=== PATIENT | male | born 1960 | race African-American/Black ===

== ENCOUNTER 2018-09-02 15:29 | Inpatient (IN) | payer MEDICAID ==
[~2018-09-02] VITALS: Ht 162.6 cm; Wt 80.3 kg
[2018-09-02] MEDS ORDERED: SODIUM CHLORIDE 0.9% 1,000 ML IV ONE (16:26)
[2018-09-02 17:43] LABS: CHLORIDE 101 mEq/L (98-107)
[2018-09-02 17:46] LABS: INR 1.2; PARTIAL THROMBOPLASTIN TIME 30.7 sec (23.4-31.0)
[2018-09-02 17:47] LABS: HEMATOCRIT. 43.7 % (42.0-52.0); HEMOGLOBIN. 14.8 g/dL (14.0-18.0); MEAN CORPUSCULAR HEMOGLOBIN 28.5 pg (28.0-32.0); MEAN PLATELET VOLUME 10.2 fl (7.4-10.4); PLATELET 242 x1000/uL (130-400)
[2018-09-02 18:41] LABS: HEPATITIS B SURFACE ANTIGEN NEGATIVE
[2018-09-02 19:11] LABS: HEPATITIS A AB IGM NEGATIVE (NEGATIVE)
[2018-09-02 19:37] LABS: PLATELET ESTIMATE NORMAL
[2018-09-02 19:45] LABS: CLARITY URINE CLEAR (CLEAR); COLOR URINE DARK YELLOW (YELLOW); KETONES URINE TRACE (NEGATIVE); LEUKOCYTE ESTERASE URINE NEGATIVE (NEGATIVE); NITRITE URINE NEGATIVE (NEGATIVE); OCCULT BLOOD URINE 1+ (NEGATIVE); PH URINE 5.5 (4.5-8.0); PROTEIN URINE NEGATIVE (NEGATIVE); SPECIFIC GRAVITY URINE 1.011 (1.005-1.030); UROBILINOGEN URINE 0.2 E.U./dL (0.2-1.0)
[2018-09-02] MEDS ORDERED: ONDANSETRON HCL 4MG/2ML INJ IV PRN (22:00)
[2018-09-02] MEDS ORDERED: ACETAMINOPHEN 325MG TABLET PO PRN (22:00)
[2018-09-02] MEDS ORDERED: CLONIDINE 0.1MG TABLET PO PRN (22:00)
[2018-09-02] MEDS ORDERED: HYDROMORPHONE HCL/PF 2MG/ML CPJ IV PRN (22:00)
[2018-09-02 23:35] VITALS: BP 141/83
[2018-09-02 23:58] VITALS: BP 141/83
[2018-09-03] MEDS: DEXT 5%/0.45% NACL 1000ML 1,000 ML IV SCH ×2 (02:10→13:44)
[2018-09-03 04:00] VITALS: BP 119/80
[2018-09-03 06:41] LABS: HEMATOCRIT. 39.5 % (42.0-52.0); HEMOGLOBIN. 13.5 g/dL (14.0-18.0); MEAN CORPUSCULAR HEMOGLOBIN 28.7 pg (28.0-32.0); MEAN CORPUSCULAR VOLUME 84.4 fL (80.0-94.0); MEAN PLATELET VOLUME 9.8 fl (7.4-10.4); PLATELET 215 x1000/uL (130-400); RED BLOOD CELL COUNT 4.69 mill/uL (4.7-6.1); RED CELL DISTRIBUTION WIDTH 18.1 % (11.6-14.6)
[2018-09-03 06:55] LABS: CHLORIDE 103 mEq/L (98-107)
[2018-09-03 08:00] VITALS: BP 136/81
[2018-09-03 11:12] LABS: PLATELET ESTIMATE NORMAL
[2018-09-03 12:00] VITALS: BP 134/85
[2018-09-03 16:00] VITALS: BP 114/78
[2018-09-03] MEDS: PIPERACILLIN/TAZ 3.375G PREMIX 50 ML IV SCH ×2 (16:00→22:18)
[2018-09-03 20:00] VITALS: BP 125/76
[2018-09-04 00:34] VITALS: BP 110/63
[2018-09-04] MEDS: DEXT 5%/0.45% NACL 1000ML 1,000 ML IV SCH (03:57)
[2018-09-04 04:00] VITALS: BP 122/75
[2018-09-04] MEDS: PIPERACILLIN/TAZ 3.375G PREMIX 50 ML IV SCH ×3 (06:08→22:09)
[2018-09-04 07:46] LABS: INR 1.2; PARTIAL THROMBOPLASTIN TIME 30.2 sec (23.4-31.0); PROTHROMBIN TIME 12.5 sec (9.1-11.1)
[2018-09-04 07:55] LABS: HEMATOCRIT. 41.6 % (42.0-52.0); HEMOGLOBIN. 14.2 g/dL (14.0-18.0); MEAN CORPUSCULAR HEMOGLOBIN 28.8 pg (28.0-32.0); MEAN CORPUSCULAR VOLUME 84.4 fL (80.0-94.0); MEAN PLATELET VOLUME 10.3 fl (7.4-10.4); PLATELET 238 x1000/uL (130-400); RED BLOOD CELL COUNT 4.93 mill/uL (4.7-6.1); RED CELL DISTRIBUTION WIDTH 18.4 % (11.6-14.6)
[2018-09-04 08:00] VITALS: BP 113/75
[2018-09-04 08:00] LABS: CHLORIDE 102 mEq/L (98-107)
[2018-09-04 11:16] LABS: PLATELET ESTIMATE NORMAL
[2018-09-04 12:00] VITALS: BP 122/73
[2018-09-04] MEDS ORDERED: SIMETHICONE 40 MG/0.6 ML 30ML ONE (13:40)
[2018-09-04] MEDS ORDERED: IOHEXOL-300 100 ML BOTTLE ONE (13:40)
[2018-09-04] MEDS ORDERED: PROPOFOL 200MG/20ML VIAL IV ONE (15:39)
[2018-09-04] MEDS ORDERED: MIDAZOLAM HCL 2 MG/2 ML VIAL ONE (15:41)
[2018-09-04] MEDS ORDERED: FENTANYL CITRATE/PF 50MCG/ML 2ML VIAL ONE (15:41)
[2018-09-04] MEDS ORDERED: LIDOCAINE HCL/PF 1% 10 MG/ML 5ML VIAL ONE (15:44)
[2018-09-04] MEDS ORDERED: EPHEDRINE SULFATE 50MG/ML VIAL ONE (15:50)
[2018-09-04] MEDS ORDERED: SODIUM CHLORIDE 0.9% 10ML VIAL ONE (15:50)
[2018-09-04] MEDS ORDERED: ROCURONIUM BROMIDE 10MG/ML VIAL 5ML IV ONE (15:52)
[2018-09-04] MEDS ORDERED: GLYCOPYRROLATE 0.2 MG/ML 2ML VIAL ONE (17:04)
[2018-09-04] MEDS ORDERED: NEOSTIGMINE METHYLSULFATE 1MG/ML 10 ML VIAL ONE (17:04)
[2018-09-04] MEDS ORDERED: ONDANSETRON HCL 4MG/2ML INJ ONE (17:12)
[2018-09-04] MEDS ORDERED: HYDROMORPHONE HCL/PF 2MG/ML CPJ IV PRN (18:15)
[2018-09-04 20:00] VITALS: BP 124/76
[2018-09-05] VITALS: BP_SYST 104; BP_SYST 136; BP_DIAS 63; BP_DIAS 78
[2018-09-05 04:00] VITALS: BP 109/65
[2018-09-05] MEDS: PIPERACILLIN/TAZ 3.375G PREMIX 50 ML IV SCH (06:53)
[2018-09-05 07:59] LABS: CHLORIDE 102 mEq/L (98-107)
[2018-09-05] MEDS ORDERED: POTASSIUM CHLORIDE 20MEQ TABLET SR PO NR (10:45)
[2018-09-05 11:49] VITALS: BP 105/56
[2018-09-05] MEDS ORDERED: KCL 20MEQ/100ML PREMIX 100 ML IV NR (12:00)
== END 2018-09-05 12:59 | disposition home or self-care (01) ==
LOC: ER 15:29 → EDBEDREQ 16:33 → 6EST 18:14 → EDBEDREQ 18:19 → EDBEDREQTM 18:19 → EDBEDREQ 18:20 → ENRESERV 20:44
PROVIDERS: ADMIT Hospitalist; ATTEND Hospitalist
PROC: BF131ZZ Fluoroscopy of Gallbladder and Bile Ducts using Low Osmolar Contrast (ICD-10-PCS; 2018-09-04)
PROC: 0FC98ZZ Extirpation of Matter from Common Bile Duct, Via Natural or Artificial Opening Endoscopic (ICD-10-PCS; principal; 2018-09-04 15:00)
DX: K80.71 Calculus of gallbladder and bile duct without cholecystitis with obstruction (principal); E46 Unspecified protein-calorie malnutrition; K26.9 Duodenal ulcer, unspecified as acute or chronic, without hemorrhage or perforation; R17 Unspecified jaundice; D72.829 Elevated white blood cell count, unspecified; Z68.30 Body mass index [BMI] 30.0-30.9, adult
CPT/HCPCS: 36415; 71045; 74181; 74328; 76700; 80076; 82248; 86705; 86709; 86803; 87340; 93005; 93970; 96360; 99285; A4216; C1726; C1769; J2250; J2405; J2543; J2704; J2710; J3010; J3480; J3490; J7030; Q9967

== ENCOUNTER 2018-10-26 04:24 | Inpatient (IN) | payer MEDICAID, MEDICARE ==
[~2018-10-26] VITALS: Ht 165.1 cm; Wt 77.6 kg
[2018-10-26] MEDS ORDERED: SODIUM CHLORIDE 0.9% 1,000 ML IV ONE (06:01)
[2018-10-26] MEDS ORDERED: KETOROLAC 30MG/ML VIAL IV STA (06:01)
[2018-10-26 06:53] LABS: CHLORIDE 102 mEq/L (98-107)
[2018-10-26 06:54] LABS: INR 1.1; PROTHROMBIN TIME 10.9 sec (9.1-11.1)
[2018-10-26 06:57] LABS: ETHANOL BLOOD < 10 mg/dL
[2018-10-26] MEDS ORDERED: FAMOTIDINE 20MG/2ML VIAL IV ONE (07:15)
[2018-10-26] MEDS ORDERED: ONDANSETRON HCL 4MG/2ML INJ IV ONE (07:15)
[2018-10-26 07:52] LABS: BASOPHILS % 0.6 % (0.0-2.0); EOSINOPHILS % 0.3 % (0.0-5.0); HEMATOCRIT. 44.7 % (42.0-52.0); HEMOGLOBIN. 15.3 g/dL (14.0-18.0); LYMPHOCYTES % 7.9 % (20.0-50.0); MEAN CORPUSCULAR HEMOGLOBIN 30.8 pg (28.0-32.0); MEAN CORPUSCULAR VOLUME 90.4 fL (80.0-94.0); MEAN PLATELET VOLUME 9.2 fl (7.4-10.4); MONOCYTES % 7.5 % (2.0-8.0); NEUTROPHILS % 83.7 % (40.0-76.0); PLATELET 213 x1000/uL (130-400); RED BLOOD CELL COUNT 4.95 mill/uL (4.7-6.1)
[2018-10-26] MEDS ORDERED: SODIUM CHLORIDE 0.9% 1000ML BAG (SEPSIS BOLUS) IV ONE (09:00)
[2018-10-26] MEDS ORDERED: PIPERACILLIN/TAZ 3.375G PREMIX 50 ML IV ONE (09:00)
[2018-10-26 20:00] VITALS: BP 142/75
[2018-10-26] MEDS ORDERED: MORPHINE SULFATE 4 MG/ML CPJ (NOT FOR IM USE) IV PRN (20:45)
[2018-10-26] MEDS ORDERED: ONDANSETRON HCL 4MG/2ML INJ IV PRN (20:45)
[2018-10-26] MEDS: DEXT 5%/0.9% NACL 1,000 ML IV SCH (22:18)
[2018-10-26 22:49] VITALS: BP 142/75
[2018-10-26] MEDS: PIPERACILLIN/TAZ 3.375G PREMIX 50 ML IV SCH (23:41)
[2018-10-27] VITALS: BP 120/72
[2018-10-27] MEDS: PIPERACILLIN/TAZ 3.375G PREMIX 50 ML IV SCH ×2 (04:49→17:01)
[2018-10-27 06:29] LABS: HEMATOCRIT 40.6 % (42.0-52.0); HEMOGLOBIN 13.8 g/dL (14.0-18.0); MEAN CORPUSCULAR HEMOGLOBIN 30.9 pg (28.0-32.0); MEAN CORPUSCULAR VOLUME 90.8 fL (80.0-94.0); PLATELET 184 x1000/uL (130-400); RED BLOOD CELL COUNT 4.47 mill/uL (4.7-6.1); RED CELL DISTRIBUTION WIDTH 13.8 % (11.6-14.6)
[2018-10-27 06:38] LABS: CHLORIDE 109 mEq/L (98-107)
[2018-10-27 08:00] VITALS: BP 108/56
[2018-10-27] MEDS ORDERED: PANTOPRAZOLE SODIUM 40 MG/VIAL IV SCH (09:00)
[2018-10-27] MEDS ORDERED: POTASSIUM CHLORIDE 20MEQ TABLET SR PO SCH (09:00)
[2018-10-27 12:31] VITALS: BP 119/55
[2018-10-27] MEDS ORDERED: DOCUSATE SODIUM 100MG CAPSULE PO PRN (14:45)
[2018-10-27 16:00] VITALS: BP 133/72
[2018-10-27] MEDS: DEXT 5%/0.9% NACL 1,000 ML IV SCH (17:02)
[2018-10-27 19:28] VITALS: BP 133/72
== END 2018-10-27 20:15 | disposition home or self-care (01) ==
LOC: ER 04:24 → 6EST 08:59 → ENRESERV 19:48
PROVIDERS: ADMIT Internal Medicine; ATTEND Internal Medicine
DX: K80.12 Calculus of gallbladder with acute and chronic cholecystitis without obstruction (principal); E87.1 Hypo-osmolality and hyponatremia; E87.2 Acidosis; E87.6 Hypokalemia; I10 Essential (primary) hypertension; K59.00 Constipation, unspecified
CPT/HCPCS: 36415; 71045; 71250; 74176; 74181; 76705; 80076; 80305; 83605; 84484; 85027; 93005; 96374; 99291; C9113; J1885; J2405; J2543; J3490; J7030; J7040; J7042